=== PATIENT | female | born 1980 | race Caucasian/White ===

== ENCOUNTER → 2020-07-11 15:57 | Outpatient (CLI) | payer BC, SELFPAY ==
--- NOTE | ~2020-07-11 | US_ITS ---
EXAMINATION: US thyroid DATE: 07/11/2020 16:19 INDICATION: Nontoxic single thyroid nodule TECHNIQUE: Multiple ultrasound images of the thyroid were obtained. COMPARISON: 09/15/2017 FINDINGS: The right thyroid lobe measures 5.4 x 2.0 x 1.8 cm. The left thyroid lobe measures 4.8 x 1.4 x 1.5 c m. Interval increase in size of a now 2.9 x 2.5 x 1.4 cm predominantly solid hypoechoic nodule which is wider than tall with smooth margins and with a few internal echogenic foci (TI-RADS 5, highly zuleika picious , FNA if >=1.0 cm, annual followup is >0.5 cm). No significant interval change in a smaller w ell-defined wider than tall solid hypoechoic nodule without echogenic foci. (TI-RADS 4, moderately hope spicious , FNA if >=1.5 cm, annual followup is >1 cm) measuring 1.1 x 0.9 x 0.7 cm in the superior ri ght thyroid. Similar smaller TI RADS 4 nodule measuring 5 mm in maximal diameter at the inferior left thyroid. There is normal echotexture, echogenicity and vascular flow throughout the thyroid gland. IMPRESSION: 1. Multinodular goiter with increase in size of a now 2.9 cm TI RADS 5 nodule in the right thyroid lo be with previous benign biopsy read as consistent with benign follicular nodule with features of hem orrhagic cyst. Given the interval growth would consider repeat biopsy. Reviewed, dictated and finalized at location B. IMPRESSION: 1. Multinodular goiter with increase in size of a now 2.9 cm TI RADS 5 nodule i n the right thyroid lobe with previous benign biopsy read as consistent with b enign follicular nodule with features of hemorrhagic cyst. Given the interval growth would consider repeat biopsy.
== END ==
PROVIDERS: Visit Provider Obstetrics & Gynecology
DX: E04.1 Nontoxic single thyroid nodule (principal)
CPT/HCPCS: 76536

== ENCOUNTER 2020-10-06 13:24 | Outpatient (CLI) | payer BC, SELFPAY ==
--- NOTE | ~2020-10-06 | US_ITS ---
EXAMINATION: US FNA w image guidance DATE: 10/06/2020 14:28 INDICATION: Right thyroid nodule. TECHNIQUE: The procedure and its benefits, risks, and benefits were discussed with the patient. Risks specifical ly discussed included bleeding. The patient verbalized understanding of the risks and agreed to proce ed. The neck was prepped and draped in the usual sterile manner. 1% lidocaine was used for local ane sthesia. 5 passes were made with a 25G needle into the lesion. Appropriate needle location was docu mented with continuous sonographic guidance. There were no immediate complications. The patient unde rstood to call the ordering physician for results after a week and a half and verbalized that underst anding. FINDINGS: Grayscale ultrasound images demonstrate needles advanced into a 2.5 cm nodule in right thyroid lobe f or biopsy. IMPRESSION: 1. Ultrasound-guided fine needle aspiration of a right thyroid nodule. Reviewed, dictated and finalized at location A. UNTS RECEIVABLE CLERK
== END 2020-10-06 13:25 | disposition home or self-care (01) ==
PROVIDERS: Visit Provider Otolaryngology
DX: E04.1 Nontoxic single thyroid nodule (principal)
CPT/HCPCS: 10005; 88173; 88305

== ENCOUNTER → 2022-11-11 09:42 | Outpatient (CLI) | payer BC, SELFPAY ==
--- NOTE | ~2022-11-11 | US_ITS ---
EXAMINATION: US thyroid DATE: 11/11/2022 09:58 INDICATION: Nontoxic single thyroid nodule. TECHNIQUE: Multiple ultrasound images of the thyroid were obtained. COMPARISON: Ultrasound 07/11/2020, 10/06/20, 09/15/17 FINDINGS: The right thyroid lobe measures 5.2 x 1.9 x 1.9 cm. The left thyroid lobe measures 3.4 x 1.3 x 1.8 c m. In the right thyroid lobe, there is a 2.8 cm solid, hypoechoic, wider than tall nodule with adin h margin without echogenic foci (TI-RADS TR4), stable from 10/06/20 when biopsy was benign. In the righ t thyroid lobe, there is a 10 mm solid, hypoechoic, wider than tall nodule with smooth margin without echogenic foci (TR4), stable from 09/15/17. In the left thyroid lobe, there is a 7 mm solid, hypoech oic, wider than tall nodule with smooth margin without echogenic foci (TR4). IMPRESSION: 1. Thyroid nodules, likely not clinically significant. No follow-up is needed. Reviewed, dictated and finalized at location A. RANCE BILLING CLERK
== END ==
PROVIDERS: PCP Nurse Practitioner Family; Visit Provider Otolaryngology
DX: E04.2 Nontoxic multinodular goiter (principal)
CPT/HCPCS: 76536